=== PATIENT | female | born 1940 ===

== ENCOUNTER 2018-03-13 08:04 | Outpatient (CLI) | payer OTHER | END 2018-03-13 08:20 | disposition home or self-care (01) | LOC: OFIC 805 08:04 | DX: H93.11 Tinnitus, right ear (principal); H90.41 Sensorineural hearing loss, unilateral, right ear, with unrestricted hearing on the contralateral side; H81.11 Benign paroxysmal vertigo, right ear; H61.23 Impacted cerumen, bilateral ==